=== PATIENT | female | born 2000 | race African-American/Black ===

== ENCOUNTER 2024-03-10 08:09 | Emergency (ER) | payer OTHER ==
[~2024-03-10] VITALS: Ht 172.7 cm; Wt 62.0 kg
[2024-03-10 08:17] VITALS: O2SAT 100
[2024-03-10] MEDS ORDERED: DICYCLOMINE 10 MG/5 ML ORAL SYR PO STA (08:21)
[2024-03-10] MEDS: ONDANSETRON 4MG ODT PO STA (09:01)
[2024-03-10] MEDS: MAGNESIUM/ALUMINUM HYDROXIDE/SIMETHICONE 30ML UDC PO STA (09:02)
[2024-03-10] MEDS: DICYCLOMINE 10 MG/5 ML ORAL SYR PO NR (09:15)
[2024-03-10 09:18] LABS: HEMATOCRIT. 34.2 % (36.0-48.0); HEMOGLOBIN. 10.8 g/dL (12.0-16.0); MEAN CORPUSCULAR HEMOGLOBIN 24.7 pg (28.0-32.0); MEAN CORPUSCULAR HGB CONC 31.6 g/dL (31.0-37.0); MEAN CORPUSCULAR VOLUME 78.3 fL (81.0-99.0); MEAN PLATELET VOLUME 7.5 fl (7.4-10.4); PLATELET 434 x1000/uL (130-400); RED BLOOD CELL COUNT 4.36 mill/uL (4.2-5.4); RED CELL DISTRIBUTION WIDTH 22.2 % (11.6-14.6); WHITE BLOOD COUNT 10.3 x1000/uL (4.5-11.0)
[2024-03-10 09:20] LABS: DIFFERENTIAL COMMENT 1
[2024-03-10 09:26] LABS: CLARITY URINE CLOUDY (CLEAR); COLOR URINE YELLOW (YELLOW); GLUCOSE URINE NEGATIVE (NEGATIVE); KETONES URINE 4+ (NEGATIVE); LEUKOCYTE ESTERASE URINE TRACE (NEGATIVE); NITRITE URINE NEGATIVE (NEGATIVE); OCCULT BLOOD URINE NEGATIVE (NEGATIVE); PH URINE 8.5 (4.5-8.0); PROTEIN URINE 1+ (NEGATIVE); SPECIFIC GRAVITY URINE 1.027 (1.005-1.030)
[2024-03-10 09:29] LABS: PROTHROMBIN TIME 11.4 sec (9.6-11.0)
[2024-03-10 09:31] LABS: CHLORIDE 109 mEq/L (98-107); POTASSIUM 3.4 mEq/L (3.5-5.1); SODIUM 141 mEq/L (136-145)
[2024-03-10 09:35] LABS: CALCIUM 9.8 mg/dL (8.7-10.4); CARBON DIOXIDE 17 mEq/L (21-32)
[2024-03-10 09:37] LABS: GLUCOSE 118 mg/dL (70-105)
[2024-03-10 09:38] LABS: *AMPHETAMINES SCREEN URINE NEGATIVE (NEGATIVE); *BARBITURATES SCREEN URINE NEGATIVE (NEGATIVE); *BENZODIAZEPINES SCREEN URINE NEGATIVE (NEGATIVE); *COCAINE SCREEN URINE NEGATIVE (NEGATIVE)
[2024-03-10 09:38] LABS: UREA NITROGEN BLOOD 11 mg/dL (9-23)
[2024-03-10 09:39] LABS: CANNABINOID URINE SCREEN PRESUMPTIVE POSITIVE (NEGATIVE); ECSTASY MDMA SCREEN URINE NEGATIVE (NEGATIVE); METHADONE URINE SCREEN NEGATIVE (NEGATIVE); OPIATES URINE SCREEN NEGATIVE (NEGATIVE); PHENCYCLIDINE URINE SCREEN NEGATIVE (NEGATIVE)
[2024-03-10 09:40] LABS: BILIRUBIN DIRECT 0.2 mg/dL (<=3.0); BILIRUBIN TOTAL 0.9 mg/dL (0.1-1.0); CREATININE 0.8 mg/dL (0.6-1.0); PROTEIN TOTAL 8.4 g/dL (6.0-8.3)
[2024-03-10 09:41] LABS: ALANINE AMINOTRANSFERASE 15 IU/L (10-49); ASPARTATE AMINOTRANSFERASE 23 IU/L (<34)
[2024-03-10 09:42] LABS: ALBUMIN 4.8 g/dL (3.2-4.8)
[2024-03-10 09:47] LABS: HCG SCREEN NEGATIVE
[2024-03-10 09:54] LABS: SQUAMOUS EPITHELIAL CELL URINE 3+ /lpf (RARE/1+)
[2024-03-10 09:55] LABS: BACTERIA URINE 3+; MUCUS URINE 1+ /lpf (< = 2+)
[2024-03-10 09:56] LABS: RBC URINE NONE SEEN /hpf (0-2); WBC URINE 0-2 /hpf (0-2)
[2024-03-10] MEDS: SODIUM CHLORIDE 0.9% 1,000 ML IV ONE (10:04)
[2024-03-10] MEDS: HALOPERIDOL LACTATE 5MG/ML VIAL IM ONE (10:05)
[2024-03-10 10:52] LABS: ANISOCYTOSIS 3+; MICROCYTOSIS 1+; PLATELET ESTIMATE SLIGHTLY INCREASED
[2024-03-10 11:44] VITALS: BP 127/63; PULSE 70; RESP 18; TEMP 98.3
== END 2024-03-10 11:59 | disposition home or self-care (01) ==
LOC: ER 09:14
DX: R11.10 Vomiting, unspecified (principal)
CPT/HCPCS: 80076; 80305; 80048; 81003; 81025; 84703; 83690; 85025; 85610; 36415; 96360; 96361; 96372; 99284; Q0162; J1630; J7030; Z7610 ×2